=== PATIENT | female | born 2000 | race Caucasian/White ===

== ENCOUNTER 2024-12-09 13:04 | Outpatient (AMB) | payer MEDICAID, SELFPAY ==
[2024-12-09 13:24] VITALS: BP 110/62; PULSE 86; RESP 14; TEMP 36.6; O2SAT 98; BMI 35.8
--- NOTE | 2024-12-09 13:24 | GYNCLNT_ITS ---
Vital Signs 12/09/24 13:24 Height 1.6 m Height Method Stated Weight 91.796 kg Weight Measurement Method Standing Scale BMI 35.8 BP 110/62 Blood Pressure Source Automatic Cuff Blood Pressure Location Left Upper Arm Position Sitting Respiration 14 Pulse 86 Pulse Source Monitor Temp 97.8 F Temp Source Oral Pulse Oximetry (%) 98 Oxygen Delivery Method Room Air Allergies/Home Meds Allergies & Medications Allergies Penicillins Allergy (Severe, Verified 12/09/24 13:26) Rash Medication Reconciliation No Known Home Medications 12/09/24 [History Confirmed 12/09/24] Intake Visit Data Collection New Patient or Established: New Patient (never been to [facility]) Reason for Visit:: Vaginal bleeding with pelvic pain at approximately 5 weeks' gestation Seen by Clinical Staff ONLY (RN/MA): No Job Estimator Required: No Do You Feel Safe at Home: Yes Authorities Contacted: N/A PCP or OBGYN visit in last 3 months: Yes Are you currently on any form of Control: Yes Last menstrual period: 10/23/24 Pain Present Currently: No Pain Scale Used: Hernadez-Hernadez/Numerical Pain scale:: 0 Smoking Status Smoking Status: Former smoker Package Sealer history Package Sealer History Menstrual regularity: regular Flow: normal Monthly: Yes How many days does period last: 7 Age at menarche: 12 Currently sexually active: Yes Questionnaires Covid-19 Vaccine Questionnaire Has patient been vacinated for Covid-19 Have you been vacinated for Covid-19: No PHQ-9 PHQ-2 Over the last 2 weeks, how often have you been bothered by any of the following problems? 1. Little interest or pleasure in doing things: not at all 2. Feeling down, depressed, or hopeless: not at all Total score: 0 PHQ-9 3. Trouble falling or staying asleep, or sleeping too much: Not at all 4. Feeling tired or having little energy: Not at all 5. Poor appetite or overeating: Not at all 6. Feeling bad about yourself - or that you are a failure or have let yourself or your family down: Not at all 7. Trouble concentrating on things, such as reading the newspaper or watching television: Not at all 8. Moving or speaking so slowly that other people could have noticed? - Or the opposite - being so fidgety or restless that you have been moving around a lot more than usual: not at all 9. Thoughts that you would be better off or of hurting yourself in some way: Not at all Total score: 0 Source: Developed by Drs. Rene Ramirez, Maribell Hernandez, Harish Chicas and colleagues, with an educational uche from [employer]. Depression screen completed yes Social History Living Situation History Lives With: Family Housing: House Tobacco History Smoking Status: Former smoker Second Hand Smoke Exposure: No Alcohol History Alcohol Intake: Current Domestic Abuse History Do You Feel Safe at Home: Yes Past Medical History Past Medical History Have you ever been diagnosed with any of the following: Respiratory Problems Asthma: Yes History of Present Illness HPI Narrative Lata Lilly is a 25-year-old female, 1 para 0, presenting at approximately 5 weeks' gestation with a history of vaginal bleeding and pelvic pain. She was initially referred from [facility] on November 27, 2024, and sent to the ER to rule out ectopic . The patient reports that her last menstrual period was on October 23, 2024. She experienced vaginal bleeding accompanied by pelvic pain, which prompted her initial referral. Subsequently, she was referred to [facility], where an ultrasound was performed around December 01, 2024, showing no visible embryo. Since then, the patient notes that both the bleeding and cramping have ceased. Recent healthcare interactions include the emergency room visit to rule out ectopic and the ultrasound performed at [facility]. The patient has undergone serial serum hCG testing, with the last two levels reported as 35,000 and 45,000, taken 48 hours apart, indicating rising hormone levels. Obstetric History - GPAL: A0 L0 - Current : - Gestational age: Approximately 5 weeks at time of referral - Last menstrual period: October 23, 2024 Review of Systems Genitourinary: Positive for vaginal bleeding (resolved). Laboratory, Imaging, and Diagnostic Test Results - Date: ~December 01, 2024 - Ultrasound: No embryo visualized - Serum hCG: - 35,000 (date not specified) - 45,000 (48 hours after previous test) Exam General General Appearance: alert, in no apparent distress and healthy appearing Head Head exam: atraumatic Neck Neck exam: Present normal inspection and trachea midline Chest Chest inspection: Present normal inspection and symmetric chest wall rise External exam: Present normal external exam; Absent tenderness Neuro Neurological exam: Present oriented X3 Psych Psychiatric exam: Present normal affect and normal mood Assessment & Plan Diagnosis / Problem List (1) of unknown anatomic location: Status: Acute Plan Lata Lilly, a 25-year-old female at approximately 5 weeks' gestation, presents with a history of vaginal bleeding and pelvic pain, now resolved. Early with previous vaginal bleeding and pelvic pain Assessment: Patient was initially referred at approximately 5 weeks' gestation due to vaginal bleeding and pelvic pain. An ultrasound performed around December 01, 2024, showed no embryo. The bleeding and cramping have since resolved. Recent lab results demonstrate increasing hormone levels, with the last two serum hCG levels at 35,000 and 45,000, taken 48 hours apart. Given the resolution of symptoms and rising hCG levels, there is a possibility of a viable intrauterine . However, the previous ultrasound findings and the patient's clinical history necessitate further evaluation to confirm the viability and location of the . Plan: - Perform urgent ultrasound at the clinic to determine viability - front desk supervisor to assist with scheduling and insurance authorization for the ultrasound Office Procedures OB Clinic LOC & Office Proc's Nursing/Assessment Patient Status: Established Patient OB Clinic Nursing Assessment: Medication Reconciliation, Update PMH in EMR and Vital Signs OB Clinic Coordination of Care: Complex Care and Chronic Disease 1-5, Consent,records obtained, informed consent, Education Simp Pt/Fam, Lab and Imaging orders, Results/Orders obtained and Staff clarify orders Established Patient Charge Established Patient Point Assignment: 105 Established Patient Point Charge: EP Level 3 (80-115)
== END 2024-12-09 14:06 | disposition home or self-care (01) ==
LOC: HODSOBC 13:04
PROVIDERS: PCP Obstetrics & Gynecology; Referring Provider Obstetrics & Gynecology; Supervising Provider Obstetrics & Gynecology; Visit Provider Obstetrics & Gynecology
DX: O36.80X0 Pregnancy with inconclusive fetal viability, not applicable or unspecified (principal); Z3A.01 Less than 8 weeks gestation of pregnancy
CPT/HCPCS: 99213; G0463

== ENCOUNTER → 2024-12-09 | Outpatient (CLI) | payer MEDICAID, SELFPAY ==
--- NOTE | 2024-12-09 14:26 | XR_ITS ---
Examination: OB Transvaginal ultrasound of the pelvis, complete Technique: Transvaginal sonographic images pelvis performed using miguel scale imaging Exam date and time: December 09, 2024 at 1533 hours INDICATIONS: Unknown size and dates FINDINGS: Uterus 9.7 cm, pole 1.4 cm corresponds 7 weeks 5 day gestational age Cardiac motion 167 BPM Right ovary 5.0 cm arterial flow 31 mm cyst Left ovary obscured by bowel gas IMPRESSION: Viable intrauterine gestation 7 weeks 5 days.
--- NOTE | 2024-12-09 14:26 | XR_ITS ---
Examination: Complete OB ultrasound, less than 14 weeks, transabdominal Date and time of exam: December 01, 2024 1508 hours INDICATIONS: Unknown size and dates Technique: Obstetrical ultrasound images less than 14 weeks performed via transabdominal imaging Findings: A normal shaped single intrauterine gestation is present in the uterus. pole 1.4 cm corresponds to 7 weeks 5 day gestational age Cardiac motion 164 BPM Ultrasonographic survey of visible and placental structures unremarkable. Amniotic fluid volume appears appropriate for this estimated gestational age. Right ovary 5.4 cm arterial flow 33 mm cyst Left ovary 3.6 cm arterial flow IMPRESSION: Viable intrauterine gestation 7 weeks 5 days.
== END | disposition home or self-care (01) ==
PROVIDERS: PCP Family Medicine; Referring Provider Obstetrics & Gynecology; Visit Provider Obstetrics & Gynecology
DX: O36.80X0 Pregnancy with inconclusive fetal viability, not applicable or unspecified (principal); Z3A.01 Less than 8 weeks gestation of pregnancy
CPT/HCPCS: 76801; 76817